=== PATIENT | male | born 1945 ===

== ENCOUNTER 2017-11-27 10:38 | Emergency (ER) | payer MEDICARE ==
[~2017-11-27] VITALS: Ht 180.3 cm; Wt 81.7 kg
[~2017-11-27 10:38] MED LIST: ASPI81CH PO; Amantadine100 M1 PO; CHOL10002; CYAN1000I IM; Carbidopa-Levo1 EAC2 PO; DOCU100 PO; ERGO400 PO; Fludrocortison0.1 MG PO; LISI5 PO; Laxative5 M1 PO; MULTI-VITAMIN1 EACH PO
[2017-11-27 11:16] LABS: BASOPHILS ABSOLUTE AUTO 0.05 K/mm3 (0.00-0.23); BASOPHILS PERCENT AUTO 1 % (0-2); EOSINOPHILS ABSOLUTE AUTO 0.06 K/mm3 (0.00-0.68); EOSINOPHILS PERCENT AUTO 1 % (0-6); Hematocrit 41.7 % (37.0-53.0); IMMATURE GRAN ABSOLUTE AUTO 0.01 K/mm3 (0.00-0.10); IMMATURE GRAN PERCENT AUTO 0 % (0-1); LYMPHOCYTES ABSOLUTE AUTO 1.46 K/mm3 (0.84-5.20); LYMPHOCYTES PERCENT AUTO 24 % (21-46); MONOCYTES ABSOLUTE AUTO 0.61 K/mm3 (0.16-1.47); MONOCYTES PERCENT AUTO 10 % (4-13); Mean Corpuscular HGB Conc 33.6 g/dL (31.5-36.5); Mean Corpuscular Volume 95 fL (80-100); Mean Platelet Volume 11.2 fL (9.1-12.4); NEUTROPHILS ABSOLUTE AUTO 3.81 K/mm3 (1.96-9.15); NEUTROPHILS PERCENT AUTO 64 % (41-73); Platelet Count 234 K/mm3 (150-400); RDW Coefficient Variation 12.6 % (11.7-14.2); RDW Standard Deviation 44.7 fL (35.1-46.3); Red Blood Cell Count 4.38 M/mm3 (4.30-5.90)
[2017-11-27 11:29] LABS: Alanine Aminotransfer (ALT/SGP 22 U/L (12-78); Albumin, Blood 3.8 g/dL (3.4-5.0); Albumin/Globulin Ratio 1.1 (0.8-1.8); Alk Phos 76 U/L (50-136); Anion Gap 6 mmol/L (6-16); Aspartate Aminotrans (AST/SGOT 22 U/L (12-37); Bilirubin, Total 0.4 mg/dL (0.1-1.0); Blood Urea Nitrogen 15 mg/dL (8-24); Bun/Creatinine Ratio 13.9 (12.0-20.0); CO2, Blood 28 mmol/L (21-32); Calcium, Blood 8.4 mg/dL (8.5-10.1); Chloride, Blood 103 mmol/L (98-108); Creatinine, Blood 1.08 mg/dL (0.60-1.20); Globulin, Blood 3.5 g/dL (2.2-4.0); Glomerular Filtration Rate >60 (60-); Glucose, Blood 100 mg/dL (70-99); Potassium, Blood 4.2 mmol/L (3.5-5.5); Sodium, Blood 137 mmol/L (136-145); Total Protein, Blood 7.3 g/dL (6.4-8.2); Troponin I <0.015 ng/mL (0.000-0.040)
== END 2017-11-27 13:06 | disposition home or self-care (01) ==
LOC: ER 10:38
PROVIDERS: Emergency Medicine
DX: R55 Syncope and collapse (principal); I10 Essential (primary) hypertension; Z87.891 Personal history of nicotine dependence; Z79.899 Other long term (current) drug therapy; Z79.82 Long term (current) use of aspirin
CPT/HCPCS: 36415; 80053; 84484; 85025; 93005; 93010; 99283

== ENCOUNTER → 2017-12-28 | Outpatient (CLI) | payer MEDICARE ==
[2017-12-28 17:39] LABS: BASOPHILS ABSOLUTE AUTO 0.05 K/mm3 (0.00-0.23); BASOPHILS PERCENT AUTO 1 % (0-2); EOSINOPHILS ABSOLUTE AUTO 0.15 K/mm3 (0.00-0.68); EOSINOPHILS PERCENT AUTO 3 % (0-6); Hematocrit 41.1 % (37.0-53.0); Hemoglobin 13.8 g/dL (13.5-17.5); IMMATURE GRAN ABSOLUTE AUTO 0.01 K/mm3 (0.00-0.10); IMMATURE GRAN PERCENT AUTO 0 % (0-1); LYMPHOCYTES PERCENT AUTO 24 % (21-46); MONOCYTES ABSOLUTE AUTO 0.47 K/mm3 (0.16-1.47); MONOCYTES PERCENT AUTO 10 % (4-13); Mean Corpuscular HGB 31.9 pg (26.0-34.0); Mean Corpuscular HGB Conc 33.6 g/dL (31.5-36.5); Mean Corpuscular Volume 95 fL (80-100); Mean Platelet Volume 10.9 fL (9.1-12.4); NEUTROPHILS ABSOLUTE AUTO 3.05 K/mm3 (1.96-9.15); NEUTROPHILS PERCENT AUTO 62 % (41-73); Platelet Count 254 K/mm3 (150-400); RDW Coefficient Variation 12.6 % (11.7-14.2); RDW Standard Deviation 44.2 fL (35.1-46.3); Red Blood Cell Count 4.32 M/mm3 (4.30-5.90); White Blood Cell Count 4.93 K/mm3 (4.00-11.30)
== END | disposition home or self-care (01) ==
LOC: LAB EV 17:35
PROVIDERS: Physician Assistant
DX: K62.5 Hemorrhage of anus and rectum (principal)
CPT/HCPCS: 85025

== ENCOUNTER → 2018-11-27 | Outpatient (CLI) | payer MEDICARE ==
[2018-11-30 15:22] LABS: Stool Occult Bld Immuno 1 Negative (NEGATIVE)
== END ==
LOC: LAB SHORT 16:30 → LAB EV 16:30 → LAB 16:30
PROVIDERS: Student in an Organized Health Care Education/Training Program
DX: Z12.11 Encounter for screening for malignant neoplasm of colon (principal); I10 Essential (primary) hypertension; E78.2 Mixed hyperlipidemia; R73.01 Impaired fasting glucose
CPT/HCPCS: G0328

== ENCOUNTER 2019-05-29 07:45 | Inpatient (IN) | payer MEDICARE ==
[~2019-05-29] VITALS: Ht 182.9 cm; Wt 73.5 kg
[~2019-05-29 07:45] MED LIST changes: -ASPI81CH PO; -Amantadine100 M1 PO; -DOCU100 PO; -LISI5 PO; -MULTI-VITAMIN1 EACH PO
[2019-05-29 09:00] LABS: BASOPHILS ABSOLUTE AUTO 0.06 K/mm3 (0.00-0.23); BASOPHILS PERCENT AUTO 1 % (0-2); EOSINOPHILS ABSOLUTE AUTO 0.27 K/mm3 (0.00-0.68); EOSINOPHILS PERCENT AUTO 2 % (0-6); Hematocrit 37.7 % (37.0-53.0); Hemoglobin 12.1 g/dL (13.5-17.5); IMMATURE GRAN ABSOLUTE AUTO 0.04 K/mm3 (0.00-0.10); IMMATURE GRAN PERCENT AUTO 0 % (0-1); LYMPHOCYTES PERCENT AUTO 7 % (21-46); MONOCYTES ABSOLUTE AUTO 1.21 K/mm3 (0.16-1.47); MONOCYTES PERCENT AUTO 10 % (4-13); Mean Corpuscular HGB 31.1 pg (26.0-34.0); Mean Corpuscular HGB Conc 32.1 g/dL (31.5-36.5); Mean Corpuscular Volume 97 fL (80-100); Mean Platelet Volume 10.8 fL (9.1-12.4); NEUTROPHILS ABSOLUTE AUTO 9.81 K/mm3 (1.96-9.15); NEUTROPHILS PERCENT AUTO 80 % (41-73); Platelet Count 251 K/mm3 (150-400); RDW Coefficient Variation 13.8 % (11.7-14.2); Red Blood Cell Count 3.89 M/mm3 (4.30-5.90); White Blood Cell Count 12.29 K/mm3 (4.00-11.30)
[2019-05-29 09:24] LABS: Albumin, Blood 3.3 g/dL (3.4-5.0); Albumin/Globulin Ratio 0.8 (0.8-1.8); Bilirubin, Total 0.7 mg/dL (0.1-1.0); Bun/Creatinine Ratio 20.7 (12.0-20.0); Creatinine, Blood 1.35 mg/dL (0.60-1.20); Globulin, Blood 3.9 g/dL (2.2-4.0); Potassium, Blood 4.2 mmol/L (3.5-5.5); Total Protein, Blood 7.2 g/dL (6.4-8.2)
[2019-05-29] MEDS ORDERED: Amantadine100 M1 PO (12:38)
[2019-05-29] MEDS ORDERED: ZESTRIL40 MG PO (12:38)
[2019-05-29] MEDS ORDERED: Amlodipine Besyl5 MG PO (12:38)
--- NOTE | 2019-05-29 13:11 | NUR ---
PT ARRIVED TO THE ROOM AT APPROXIMATELY 1220. PT ALERT AND ORIENTED. PT REPOSITIONED AND ATTENDS CHANGED. PT FOUND TO HAVE STATE 3 PRESSURE SORE TO HIS BUTTOCKS AND 2 STAGE 2 PRESSURE SORES ALSO LOCATED IN THAT AREA. PICTURES TAKEN. PT ALSO HAD DRIED ON BOWEL MOVEMENT WHICH WAS REMOVED. PT REPORTS HIS FAMILY ASSISTS HIM AT HOME WHEN HE IS UNABLE TO CARE FOR HIMSELF. PT REPORTS HE SITS MOST OF THE TIME, ESPECIALLY SINCE IS , HE REPORTS THIS RECENT ON MAY 24, 2019. HE ALSO REPORTS FREQUENT FALLS WHEN AMBULATING. PAIN IS MANAGED WITH PT IS AT REST. VSS. WILL CONTINUE TO MONITOR.
[2019-05-29] MEDS ORDERED: COLACE CLEAR50 MG PO (14:53)
[2019-05-29] MEDS ORDERED: Aspirin EC81 MG PO (14:54)
[2019-05-29] MEDS ORDERED: MULTI-VITAMIN1 EACH PO (14:54)
[2019-05-29] MEDS ORDERED: OMEP20ER PO (14:56)
[2019-05-29] MEDS ORDERED: Senna8.6 MG PO (14:56)
[2019-05-29] MEDS ORDERED: Coq-10100 MG PO (14:57)
[2019-05-29] MEDS ORDERED: PROBIOTIC1 EAC4 PO (14:57)
--- NOTE | 2019-05-29 19:30 | NUR ---
SHIFT SUMMARY PAIN HAS BEEN MINIMAL SINCE PT ARRIVED TO THE UNIT. PT HAS BEEN ALERT AND ORIENTED. PLAN FOR SURGERY TOMORROW. VSS. WILL MONITOR UNTIL REPORT TO ONCOMING RN.
[2019-05-29 20:09] LABS: Source, Urine Catheter
[2019-05-29 20:13] LABS: Appearance, Urine Hazy (Clear); Bilirubin, Urine Neg (Neg); Blood, Urine 5+ (Neg); Color, Urine Yellow (P-Yellow); Glucose Qualitative, Urine Neg (Neg); Ketones, Urine Neg (Neg); Leukocyte Esterase, Urine 1+ (Neg); Nitrite, Urine Neg (Neg); Protein, Urine 2+ (Neg); Specific Gravity, Urine 1.015 (1.003-1.022); Urobilinogen, Urine 1+ (Normal); pH, Urine 6.5 (5.0-8.0)
[2019-05-29 20:20] LABS: Bacteria Few /hpf; Red Blood Cells, Urine TNTC /hpf (0-2); Squamous Epithelial Cells Not Seen /hpf (Few); White Blood Cells, Urine 0-2 /hpf (0-5)
[2019-05-30 04:24] LABS: BASOPHILS ABSOLUTE AUTO 0.05 K/mm3 (0.00-0.23); BASOPHILS PERCENT AUTO 1 % (0-2); EOSINOPHILS ABSOLUTE AUTO 0.23 K/mm3 (0.00-0.68); EOSINOPHILS PERCENT AUTO 3 % (0-6); Hematocrit 35.1 % (37.0-53.0); Hemoglobin 11.3 g/dL (13.5-17.5); IMMATURE GRAN ABSOLUTE AUTO 0.01 K/mm3 (0.00-0.10); IMMATURE GRAN PERCENT AUTO 0 % (0-1); LYMPHOCYTES ABSOLUTE AUTO 1.23 K/mm3 (0.84-5.20); LYMPHOCYTES PERCENT AUTO 13 % (21-46); MONOCYTES ABSOLUTE AUTO 1.16 K/mm3 (0.16-1.47); MONOCYTES PERCENT AUTO 12 % (4-13); Mean Corpuscular HGB 31.8 pg (26.0-34.0); Mean Corpuscular HGB Conc 32.2 g/dL (31.5-36.5); Mean Corpuscular Volume 99 fL (80-100); Mean Platelet Volume 11.1 fL (9.1-12.4); NEUTROPHILS ABSOLUTE AUTO 6.64 K/mm3 (1.96-9.15); NEUTROPHILS PERCENT AUTO 71 % (41-73); Platelet Count 215 K/mm3 (150-400); RDW Coefficient Variation 13.2 % (11.7-14.2); Red Blood Cell Count 3.55 M/mm3 (4.30-5.90); White Blood Cell Count 9.32 K/mm3 (4.00-11.30)
[2019-05-30 04:48] LABS: Alanine Aminotransfer (ALT/SGP 18 U/L (12-78); Albumin, Blood 2.8 g/dL (3.4-5.0); Albumin/Globulin Ratio 0.8 (0.8-1.8); Alk Phos 85 U/L (50-136); Anion Gap 6 mmol/L (6-16); Aspartate Aminotrans (AST/SGOT 27 U/L (12-37); Bilirubin, Total 0.6 mg/dL (0.1-1.0); Blood Urea Nitrogen 22 mg/dL (8-24); Bun/Creatinine Ratio 17.9 (12.0-20.0); CO2, Blood 26 mmol/L (21-32); Calcium, Blood 8.2 mg/dL (8.5-10.1); Chloride, Blood 108 mmol/L (98-108); Creatinine, Blood 1.23 mg/dL (0.60-1.20); Globulin, Blood 3.6 g/dL (2.2-4.0); Glomerular Filtration Rate >60 (60-); Glucose, Blood 98 mg/dL (70-99); Potassium, Blood 3.8 mmol/L (3.5-5.5); Sodium, Blood 140 mmol/L (136-145); Total Protein, Blood 6.4 g/dL (6.4-8.2)
--- NOTE | 2019-05-30 06:59 | NUR ---
SHIFT SUMMARY HAS RESTED RELATIVELY WELL. HAS BEEN NPO SINCE MT FOR SX TODAY. DENIES PAIN, DISCOMFORT, OR FURTHER NEEDS AT THIS TIME. SAFETY MEASURES IN PLACE. WILL GIVE HAND OFF TO ONCOMING SHIFT USING SBAR.
--- NOTE | 2019-05-30 14:44 | NUR ---
INTO SDS VIA BED. HISTORY AND ALLERGIES REVIEWED. NPO STATUS CONFIRMED. LUNGS SLIGHTLY DIMINISHED IN BASES. MOIST, NONPRODUCTIVE COUGH NOTED. MAINTAINS SATS>90% ON RA.
--- NOTE | 2019-05-30 16:48 | NUR ---
05/30/19 1640 Renetta Blackmon PT ENTERED OR WITH SWEET CATHETER. [employer] SACRAL DRESSING CHANGED IN OR PRIOR TO PREPPING.
[2019-05-31 04:40] LABS: BASOPHILS ABSOLUTE AUTO 0.01 K/mm3 (0.00-0.23); BASOPHILS PERCENT AUTO 0 % (0-2); EOSINOPHILS PERCENT AUTO 0 % (0-6); Hematocrit 32.8 % (37.0-53.0); Hemoglobin 10.7 g/dL (13.5-17.5); IMMATURE GRAN ABSOLUTE AUTO 0.02 K/mm3 (0.00-0.10); IMMATURE GRAN PERCENT AUTO 0 % (0-1); LYMPHOCYTES ABSOLUTE AUTO 0.39 K/mm3 (0.84-5.20); LYMPHOCYTES PERCENT AUTO 4 % (21-46); MONOCYTES ABSOLUTE AUTO 0.43 K/mm3 (0.16-1.47); MONOCYTES PERCENT AUTO 4 % (4-13); Mean Corpuscular HGB 31.4 pg (26.0-34.0); Mean Corpuscular HGB Conc 32.6 g/dL (31.5-36.5); Mean Platelet Volume 11.6 fL (9.1-12.4); NEUTROPHILS ABSOLUTE AUTO 8.84 K/mm3 (1.96-9.15); NEUTROPHILS PERCENT AUTO 91 % (41-73); Platelet Count 217 K/mm3 (150-400); RDW Coefficient Variation 13.2 % (11.7-14.2); RDW Standard Deviation 46.6 fL (35.1-46.3); Red Blood Cell Count 3.41 M/mm3 (4.30-5.90); White Blood Cell Count 9.69 K/mm3 (4.00-11.30)
[2019-05-31 04:42] LABS: Mean Corpuscular Volume 96 fL (80-100)
[2019-05-31 05:02] LABS: Anion Gap 8 mmol/L (6-16); Blood Urea Nitrogen 26 mg/dL (8-24); Bun/Creatinine Ratio 22.2 (12.0-20.0); CO2, Blood 22 mmol/L (21-32); Calcium, Blood 8.1 mg/dL (8.5-10.1); Chloride, Blood 108 mmol/L (98-108); Creatinine, Blood 1.17 mg/dL (0.60-1.20); Glomerular Filtration Rate >60 (60-); Glucose, Blood 132 mg/dL (70-99); Magnesium, Blood 2.1 mg/dL (1.6-2.4); Potassium, Blood 4.5 mmol/L (3.5-5.5); Sodium, Blood 138 mmol/L (136-145)
--- NOTE | 2019-05-31 07:49 | NUR ---
SHIFT SUMMARY: PT POD #1 FOR RIGHT MARLYN HIP. PT DROWSY SINCE SURGERY. AROUSABLE WITH VERBAL STIMULI. CONFUSED TO SURROUNDINGS AND EVENT, HOWEVER CALM AND COOPERATIVE. DENYING PAIN T/O SHIFT. GIVEN SCHED TORADOL. REFUSED TYLENOL. AQUACEL CDI WITH POLAR PACK IN PLACE. SWEET PATENT AND DRAINING YELLOW URINE. FLUIDS INFUSING. MINIMAL PO INTAKE. MEPILEX TO COCCYX. 2 MAX ASSIST FOR REPOSITIONING.
--- NOTE | 2019-05-31 17:09 | NUR ---
SHIFT SUMMARY PT A&OX4. POD1 R MARLYN HIP, AQUACEL CDI, 50% WB, ELEVATED, TEDS/SCDS & POLAR LUIS ON. DENIES PAIN. DENIES N&V, RODOLFO PO. STAND PIVOT W/FWW & GB & 2 PP MAX ASSIST TO CHAIR. SWEET PATENT & DRAINING YELLOW URINE, STAT LOCK ON, OFF FLOOR. IVF LR @ 70 MLS/HR. WCTM & TX PER EMAR UNTIL REPORT GIVEN TO ONCOMING COLLIN BETTS.
--- NOTE | 2019-06-01 05:30 | NUR ---
SHIFT SUMMARY: PT POD #2 FOR RIGHT MARLYN HIP. A&O X4 T/O SHIFT. VSS. PT TRANSFERED FROM CHAIR TO BED WITH 3 PERSON MAX ASSIST. AQUACEL TO RIGHT HIP CDI WITH POLAR PACK IN PLACE. PT DENYING PAIN THROUGHOUT SHIFT. GIVEN SCHED TORADOL AND TYLENOL. SWEET PATENT AND DRAINING. PT EAGER TO GO HOME.
--- NOTE | 2019-06-01 16:32 | NUR ---
SHIFT SUMMARY PT A&OX4, VSS, POD2 R MARLYN HIP, AQUACEL CDI, POLAR LUIS ON, TEDS/SCDS AND ELEVATED. UP TO CHAIR T/O SHIFT. AMB W/2 MAX ASSIST - STAND PIVOT. WORKED WITH PHYSICAL THERAPY TODAY. PAIN MANAGED PER EMAR. RODOLFO PO, DENIES N&V. SWEET PATENT & DRAINING YELLOW URINE, STAT LOCK ON, OFF FLOOR. WCTM & TX PER EMAR UNTIL REPORT GIVEN TO ONCOMING COLLIN BETTS.
--- NOTE | 2019-06-02 06:02 | NUR ---
SHIFT SUMMARY: PT APPEARS TO BE RESTING COMFORTABLY T/O SHIFT. A&O X4. VSS. GIVEN SCHED TORADOL. PT REFUSING TYLENOL. PT DENYING PAIN. AQUACEL ON RIGHT HIP CDI. SALINE LOCKED. RODOLFO PO. SWEET PATENT AND DRAINING CLEAR YELLOW URINE. ADEQUATE OUTPUT. PLAN FOR SNF POST DISCHARGE.
--- NOTE | 2019-06-02 17:33 | NUR ---
REPORT CALLED TO [facility]. AWAITING TRANSPORT ARRIVAL. PT NOTIFIED THAT HE WILL BE TRANSFERRED TO SNF.
--- NOTE | 2019-06-02 17:40 | NUR ---
HOME CARE PT WAS ASKED ABOUT HOME CARE. HE REPORTS HE DOES MOST OF HIS CARE AT HOME AND FAMILY HELPS HIM WHEN HE ASKS FOR HELP. PT ASKED IF HE NOTIFIED HIS FAMILY THAT HE WAS HAVING DISCOMFORT TO HIS BUTTOCKS. HE DENIED TELLING HIS FAMILY THAT SOMETHING WAS WRONG AND ATTEMPTED TO REMEDY IT HIMSELF. HE ALSO REPORTED HE DOES NOT ALWAYS TELL HIS FAMILY WHEN HE NEEDS MORE HELP.
--- NOTE | 2019-06-02 18:35 | NUR ---
DISCHARGE PT ASSISTED INTO W/C FOR TRANSPORT TO [facility].
== END 2019-06-02 18:35 | DRG 469 ==
LOC: ER 07:45 → SURS 10:08
PROVIDERS: Emergency Medicine; Orthopaedic Surgery; ADMIT Internal Medicine
PROC: 0SRR0JZ Replacement of Right Hip Joint, Femoral Surface with Synthetic Substitute, Open Approach (ICD-10-PCS; principal; 2019-05-30 15:30)
DX: S72.001A Fracture of unspecified part of neck of right femur, initial encounter for closed fracture (principal); L89.153 Pressure ulcer of sacral region, stage 3; G90.3 Multi-system degeneration of the autonomic nervous system; L89.302 Pressure ulcer of unspecified buttock, stage 2; W18.30XA Fall on same level, unspecified, initial encounter; I10 Essential (primary) hypertension; E78.5 Hyperlipidemia, unspecified; Z87.891 Personal history of nicotine dependence; D64.9 Anemia, unspecified
CPT/HCPCS: 36415; 71045; 72170; 73502; 80048; 80053; 81001; 83735; 85025; 86850; 86900; 86901; 87086; 88305; 88311; 93005; 93010; 96360; 97110; 97161; 97166; 97530; 99285-25; C1776; J0171; J0690; J0735; J1100; J1650; J1885; J2270; J2370; J2405; J2704; J2765; J2795; J3010; J7042; J7120

== ENCOUNTER 2019-06-13 13:47 | Emergency (ER) | payer MEDICARE ==
[~2019-06-13] VITALS: Ht 180.3 cm; Wt 73.9 kg
[~2019-06-13 13:47] MED LIST changes: +Amantadine100 M1 PO; +Amlodipine Besyl5 MG PO; +Aspirin EC81 MG PO; +COLACE CLEAR50 MG PO; +Coq-10100 MG PO; +MULTI-VITAMIN1 EACH PO; +OMEP20ER PO; +PROBIOTIC1 EAC4 PO; +Senna8.6 MG PO; +ZESTRIL40 MG PO
[2019-06-14] MEDS ORDERED: OXYC10TA19 PO (10:09)
[2019-06-14] MEDS ORDERED: XARELTO15 MG PO (14:19)
== END 2019-06-13 18:12 | disposition home or self-care (01) ==
LOC: ER 13:47
DX: T84.020A Dislocation of internal right hip prosthesis, initial encounter (principal); X50.9XXA Other and unspecified overexertion or strenuous movements or postures, initial encounter; R55 Syncope and collapse; Z87.891 Personal history of nicotine dependence; Z79.899 Other long term (current) drug therapy; Z79.82 Long term (current) use of aspirin
CPT/HCPCS: 27265; 73502; 96374-59; 96375-59; 99283-25; J2405; J2704; J3010; J7030

== ENCOUNTER 2019-06-13 20:02 | Inpatient (IN) | payer MEDICARE ==
[~2019-06-13] VITALS: Ht 180.3 cm; Wt 77.5 kg
[2019-06-14 00:45] LABS: BASOPHILS ABSOLUTE AUTO 0.03 K/mm3 (0.00-0.23); BASOPHILS PERCENT AUTO 0 % (0-2); EOSINOPHILS ABSOLUTE AUTO 0.01 K/mm3 (0.00-0.68); EOSINOPHILS PERCENT AUTO 0 % (0-6); Hematocrit 30.3 % (37.0-53.0); Hemoglobin 9.7 g/dL (13.5-17.5); IMMATURE GRAN ABSOLUTE AUTO 0.07 K/mm3 (0.00-0.10); IMMATURE GRAN PERCENT AUTO 1 % (0-1); LYMPHOCYTES ABSOLUTE AUTO 1.05 K/mm3 (0.84-5.20); LYMPHOCYTES PERCENT AUTO 7 % (21-46); MONOCYTES ABSOLUTE AUTO 0.97 K/mm3 (0.16-1.47); MONOCYTES PERCENT AUTO 6 % (4-13); Mean Corpuscular HGB 31.8 pg (26.0-34.0); NEUTROPHILS ABSOLUTE AUTO 13.36 K/mm3 (1.96-9.15); NEUTROPHILS PERCENT AUTO 86 % (41-73); Platelet Count 447 K/mm3 (150-400); RDW Coefficient Variation 13.2 % (11.7-14.2); Red Blood Cell Count 3.05 M/mm3 (4.30-5.90); White Blood Cell Count 15.49 K/mm3 (4.00-11.30)
[2019-06-14 00:46] LABS: Mean Corpuscular Volume 99 fL (80-100)
[2019-06-14 07:06] LABS: BASOPHILS ABSOLUTE AUTO 0.06 K/mm3 (0.00-0.23); BASOPHILS PERCENT AUTO 0 % (0-2); EOSINOPHILS ABSOLUTE AUTO 0.14 K/mm3 (0.00-0.68); EOSINOPHILS PERCENT AUTO 1 % (0-6); Hematocrit 28.3 % (37.0-53.0); Hemoglobin 8.9 g/dL (13.5-17.5); IMMATURE GRAN ABSOLUTE AUTO 0.05 K/mm3 (0.00-0.10); IMMATURE GRAN PERCENT AUTO 0 % (0-1); LYMPHOCYTES ABSOLUTE AUTO 1.42 K/mm3 (0.84-5.20); LYMPHOCYTES PERCENT AUTO 10 % (21-46); MONOCYTES ABSOLUTE AUTO 1.21 K/mm3 (0.16-1.47); MONOCYTES PERCENT AUTO 8 % (4-13); Mean Corpuscular HGB 30.9 pg (26.0-34.0); Mean Corpuscular HGB Conc 31.4 g/dL (31.5-36.5); Mean Corpuscular Volume 98 fL (80-100); Mean Platelet Volume 11.3 fL (9.1-12.4); NEUTROPHILS ABSOLUTE AUTO 11.59 K/mm3 (1.96-9.15); NEUTROPHILS PERCENT AUTO 80 % (41-73); Platelet Count 420 K/mm3 (150-400); RDW Coefficient Variation 13.3 % (11.7-14.2); RDW Standard Deviation 48.4 fL (35.1-46.3); Red Blood Cell Count 2.88 M/mm3 (4.30-5.90); White Blood Cell Count 14.47 K/mm3 (4.00-11.30)
[2019-06-14 07:13] LABS: International Normalized Ratio 1.14; Prothrombin Time Results 11.9 Sec (9.7-11.5)
[2019-06-14 07:14] LABS: Bun/Creatinine Ratio 16.9 (12.0-20.0); Calcium, Blood 8.1 mg/dL (8.5-10.1); Creatinine, Blood 1.42 mg/dL (0.60-1.20); Potassium, Blood 3.8 mmol/L (3.5-5.5)
--- NOTE | 2019-06-14 07:32 | NUR ---
SHIFT SUMMARY PT ALERT T/O SHIFT. S/P R HIP REDUCTION; PT DECLINED PAIN MEDICATION; DRESSING TO R HIP CDI. PPPX4; BRISK CAP REFILL. MULTI-LAYER FOAM DRESSING TO COCCYX. VSS; NO ACUTE CHANGES. ATTENDS IN PLACE; ASSITED WITH URINAL PRN. GERI HOSE TO LOW EXT. PT WOKE DISORIENTED AND PULLED IV THIS AM. CALL LIGHT IN REACH; PT DEMONSRTATES USE. REPORT GIVEN TO DAY SHIFT RN.
--- NOTE | 2019-06-14 10:01 | NUR ---
DR BRUNSON HERE TO SEE PT, FAMILY PRESENT.
[2019-06-14] MEDS ORDERED: OXYC10TA19 PO (10:09)
--- NOTE | 2019-06-14 10:47 | NUR ---
SPOKE WITH DR KIMBALL REGARDING DIET WELL PT FAMILY REQUESTING TO SEE HIM. REPORTS PT MAY EAT REGULAR DIET.
[2019-06-14] MEDS ORDERED: XARELTO15 MG PO (14:19)
--- NOTE | 2019-06-14 17:44 | NUR ---
SHIFT SUMMARY PT WAS AWAKE EARLIER THIS MORNING. PT BEEN SLEEPING WITH RESP E/U THIS AFTERNOON EVENING. PT BEEN ASSISTED WITH ADL'S PRN. PT HAD GIANCARLO REMOVED, SURGICAL SITE CLEANED WITH PEROXIDE AND NEW DRESSING PLACED BY HELMINTHOLOGIST PER DR BRUNSON EARLIER TODAY. PT BED ALARM IN PLACE. FAMILY HERE EARLIER THIS AM.
--- NOTE | 2019-06-15 05:06 | NUR ---
PT VSS T/O NIGHT. PAIN MGD W/TYLENOL AND REPOSITIONING. POSTERIOR HIP PRECAUTIONS MAINTAINED, LEG IMMOBILIZER IN PLACE. FOAM DRESSING INTACT TO COCCYX. PT USING URINAL W/ASSITANCE. PO FLUIDS OFFERRED W/ROUNDINGS. PT REPOSITIOJNED FREQUENTLY T/O NIGHT, DOES SHIFT SELF SLIGHTLY IN BED. PT FORGETFUL AT TIMES, DOES USE CALL LIGHT AT TIMES. BED ALARM ON FOR SAFETY. WILL CONT TO MONITOR UNTIL REP GIVEN TO ONCOMING RN.
--- NOTE | 2019-06-15 10:23 | NUR ---
DR KIMBALL HERE RECENTLY. DISCUSSED PT'S STATUS. PT RECENTLY CLEANED UP. NEW MEPILEX PLACED. PT REPOSITIONED. BED ALARM IN PLACE.
--- NOTE | 2019-06-15 11:25 | NUR ---
FAMILY CAME AND VISITED PT. PT BED ALARM IN PLACE FAMILY HAS LEFT AGAIN.
--- NOTE | 2019-06-15 12:02 | NUR ---
TELE PLACED AND VERIFIED.
--- NOTE | 2019-06-15 18:06 | NUR ---
SHIFT SUMMARY PT EATING AND DRINKING WELL. PT BEEN REPOSITIONED MULT TIMES TODAY. PT BEEN ASSISTED WITH ADL'S PRN. TELE WAS PLACED PER DR KIMBALL. FAMILY IN TO SEE PT EARLIER TODAY. PT VOIDING AND HAD BM EARLIER TODAY. PT USING CALL LIGHT AT TIMES. BED ALARM IN PLACE.
[2019-06-16 04:40] LABS: BASOPHILS ABSOLUTE AUTO 0.07 K/mm3 (0.00-0.23); BASOPHILS PERCENT AUTO 1 % (0-2); EOSINOPHILS ABSOLUTE AUTO 0.32 K/mm3 (0.00-0.68); EOSINOPHILS PERCENT AUTO 3 % (0-6); Hematocrit 29.4 % (37.0-53.0); Hemoglobin 9.3 g/dL (13.5-17.5); IMMATURE GRAN ABSOLUTE AUTO 0.04 K/mm3 (0.00-0.10); IMMATURE GRAN PERCENT AUTO 0 % (0-1); LYMPHOCYTES ABSOLUTE AUTO 2.01 K/mm3 (0.84-5.20); LYMPHOCYTES PERCENT AUTO 17 % (21-46); MONOCYTES ABSOLUTE AUTO 0.96 K/mm3 (0.16-1.47); MONOCYTES PERCENT AUTO 8 % (4-13); Mean Corpuscular HGB 30.6 pg (26.0-34.0); Mean Corpuscular HGB Conc 31.6 g/dL (31.5-36.5); Mean Corpuscular Volume 97 fL (80-100); Mean Platelet Volume 11.2 fL (9.1-12.4); NEUTROPHILS ABSOLUTE AUTO 8.31 K/mm3 (1.96-9.15); NEUTROPHILS PERCENT AUTO 71 % (41-73); Platelet Count 385 K/mm3 (150-400); RDW Coefficient Variation 13.2 % (11.7-14.2); RDW Standard Deviation 46.9 fL (35.1-46.3); Red Blood Cell Count 3.04 M/mm3 (4.30-5.90); White Blood Cell Count 11.71 K/mm3 (4.00-11.30)
[2019-06-16 05:01] LABS: Bun/Creatinine Ratio 17.9 (12.0-20.0); Calcium, Blood 8.3 mg/dL (8.5-10.1); Creatinine, Blood 1.4 mg/dL (0.60-1.20)
--- NOTE | 2019-06-16 05:31 | NUR ---
SHIFT SUMMARY PT A&O TO SELF T/O SHIFT. MORE FORGETFUL DURING NIGHT. R HIP DRESSING CDI; PT DECLINED ICE TO R HIP; BRACE TO R KNEE; PPPX4; EXT PWD. PAIN MANAGED PER EMAR. GERI HERNANDEZ. DRESSING TO COCCYX CDI. RA; VSS. CALL LIGHT IN REACH; PT DEMONSTRATES USE. WCTM UNTIL REPORT TO DAY SHIFT RN.
--- NOTE | 2019-06-16 10:35 | NUR ---
PT GOT UP TO THE EDGE OF THE BED WITH THERAPY. PT WAS ABLE TO STAND. AFTER HE STOOD AND WAS SITTING AT THE EDGE OF THE BED HE SLUMPED OVER. PT REMAINED AWAKE BUT WAS NOT RESPONSIVE FOR LESS THAN A MINUTE. PT WAS ASSISTED BACK TO BED BY STAFF MEMBERS. VS CHECKED AND WERE STABLE. PT NSR ON TELE. PT REPORTS HE HAS THESE EPISODES AT HOME.
--- NOTE | 2019-06-16 11:16 | NUR ---
Patient is lying in bed and alert. Patient immediately tells me that physical therapy was just in to work with him and it did not go well. Patient said that the pain that accompanied movement was beyond his thershold of pain. Patient also told me about the very recent of his , patient's ideas about a higher being who is out there somewhere, and about his family and living arrangements. I listen empathically, provide spiritual guidance and grief support. Patient responds well and invites me to return and visit if he is in the hospital tomorrow. I continue to remain available to patient and familty.
--- NOTE | 2019-06-16 13:59 | NUR ---
THERAPY PT ASSISTED TO EDGE OF BED WITH PHYSICAL THERAPY. BP 116/68 WHILE SITTING AT THE EDGE OF THE BED; PT DENIED DIZZINESS FEELING. PT WAS ABLE TO COMPLETE 3 PARTIAL STANDS WITH 2 PERSON MODERATE ASSIST. PT DENIED DIZZINESS BUT REPORTED WEAKNESS; BP WAS RE-EVALUATED AND FOUND TO BE 87/38. PT WAS ASSISTED BACK TO BED AND BP RECOVERED TO 124/58. WILL CONTINUE TO MONITOR.
--- NOTE | 2019-06-16 18:14 | NUR ---
SHIFT SUMMARY PAIN HAS BEEN MANAGED WITH MINIMAL PAIN MEDICATION THIS SHIFT. PT ATTEMPTED TO PARTICIPATE WITH THERAPY X2, PT BECAME LIGHTHEADED WITH LOW BP. PT HAS A BOLUS OF IV FLUID, BP DROPPED WITH SECOND ROUND OF THERAPY. PT HAS BEEN ABLE TO DO SOME REPOSITIONING INDEPEDNENTLY OTHERWISE PT ASSISTED WITH REPOSITIONING. FAMILY VISITED TODAY. WILL MONITOR UNTIL REPORT TO ONCOMING RN.
[2019-06-17 04:42] LABS: BASOPHILS ABSOLUTE AUTO 0.05 K/mm3 (0.00-0.23); BASOPHILS PERCENT AUTO 0 % (0-2); EOSINOPHILS ABSOLUTE AUTO 0.23 K/mm3 (0.00-0.68); EOSINOPHILS PERCENT AUTO 2 % (0-6); Hematocrit 23.6 % (37.0-53.0); Hemoglobin 7.4 g/dL (13.5-17.5); IMMATURE GRAN ABSOLUTE AUTO 0.05 K/mm3 (0.00-0.10); IMMATURE GRAN PERCENT AUTO 0 % (0-1); LYMPHOCYTES ABSOLUTE AUTO 1.47 K/mm3 (0.84-5.20); LYMPHOCYTES PERCENT AUTO 13 % (21-46); MONOCYTES ABSOLUTE AUTO 0.96 K/mm3 (0.16-1.47); MONOCYTES PERCENT AUTO 9 % (4-13); Mean Corpuscular HGB 30.5 pg (26.0-34.0); Mean Corpuscular HGB Conc 31.4 g/dL (31.5-36.5); Mean Corpuscular Volume 97 fL (80-100); Mean Platelet Volume 11.2 fL (9.1-12.4); NEUTROPHILS ABSOLUTE AUTO 8.59 K/mm3 (1.96-9.15); NEUTROPHILS PERCENT AUTO 76 % (41-73); Platelet Count 351 K/mm3 (150-400); RDW Coefficient Variation 13.4 % (11.7-14.2); RDW Standard Deviation 48.2 fL (35.1-46.3); Red Blood Cell Count 2.43 M/mm3 (4.30-5.90); White Blood Cell Count 11.35 K/mm3 (4.00-11.30)
[2019-06-17 04:56] LABS: Bun/Creatinine Ratio 22.7 (12.0-20.0); Creatinine, Blood 1.28 mg/dL (0.60-1.20); Potassium, Blood 4.1 mmol/L (3.5-5.5)
--- NOTE | 2019-06-17 05:09 | NUR ---
SHIFT SUMMARY NO ACUTE CHANGES TONIGHT. PT CONT TO BE IN R KNEE IMMOBILIZER FOR POSTERIOR HIP PRECAUTIONS. TELE IN PLACE, NSR c PAC'S @ 65 BPM PER MICA LAYER. RESP E/U ON RA. NO PAIN MEDS GIVEN THIS SHIFT, PT REPORTS PAIN IS TOLERABLE. PT REPOSITIONED Q2H. VSS. WILL CONT TO MONITOR AND PROVIDE CARE UNTIL PRESUMED BY ONCOMING RN.
--- NOTE | 2019-06-17 06:38 | NUR ---
RN AT THE BEDSIDE.
--- NOTE | 2019-06-17 18:33 | NUR ---
SHIFT SUMMARY PT WAS DROWSY UNTIL FIRST UNIT OF BLOOD WAS INFUSED. THEN BECAME MORE ALERT AND INTERACTIVE BUT STILL QUIET. VERY RESISTANT TO WORK WITH THERAPY BUT DID DANGLE AT BEDSIDE. ORTHOSTATIC HYPOTENSION NOTED AND PT TOELRATED FOR 4 MINS BEFORE BECOMING DIZZY. PAIN WELL CONTROLLED. TOELRATING DIET WELL.
--- NOTE | 2019-06-17 22:47 | NUR ---
RN NOTIFIED OF SOME FECES GETTING UNDER THE COCCYX BANDAGE. AREA CLEANED UP AND RN PLACED A NEW BANDAGE. PATIENT HAS CALL LIGHT IN REACH.
[2019-06-18 04:28] LABS: BASOPHILS ABSOLUTE AUTO 0.07 K/mm3 (0.00-0.23); BASOPHILS PERCENT AUTO 1 % (0-2); EOSINOPHILS ABSOLUTE AUTO 0.28 K/mm3 (0.00-0.68); EOSINOPHILS PERCENT AUTO 3 % (0-6); Hematocrit 28.4 % (37.0-53.0); Hemoglobin 9.2 g/dL (13.5-17.5); IMMATURE GRAN ABSOLUTE AUTO 0.04 K/mm3 (0.00-0.10); IMMATURE GRAN PERCENT AUTO 0 % (0-1); LYMPHOCYTES ABSOLUTE AUTO 1.67 K/mm3 (0.84-5.20); LYMPHOCYTES PERCENT AUTO 15 % (21-46); MONOCYTES ABSOLUTE AUTO 1.12 K/mm3 (0.16-1.47); MONOCYTES PERCENT AUTO 10 % (4-13); Mean Corpuscular HGB 31.4 pg (26.0-34.0); Mean Corpuscular HGB Conc 32.4 g/dL (31.5-36.5); Mean Corpuscular Volume 97 fL (80-100); Mean Platelet Volume 11.4 fL (9.1-12.4); NEUTROPHILS ABSOLUTE AUTO 7.84 K/mm3 (1.96-9.15); NEUTROPHILS PERCENT AUTO 71 % (41-73); Platelet Count 328 K/mm3 (150-400); RDW Coefficient Variation 14.1 % (11.7-14.2); RDW Standard Deviation 50.2 fL (35.1-46.3); Red Blood Cell Count 2.93 M/mm3 (4.30-5.90); White Blood Cell Count 11.02 K/mm3 (4.00-11.30)
[2019-06-18 04:46] LABS: Anion Gap 5 mmol/L (6-16); Blood Urea Nitrogen 27 mg/dL (8-24); Bun/Creatinine Ratio 23.3 (12.0-20.0); CO2, Blood 28 mmol/L (21-32); Calcium, Blood 8.1 mg/dL (8.5-10.1); Chloride, Blood 107 mmol/L (98-108); Creatinine, Blood 1.16 mg/dL (0.60-1.20); Glomerular Filtration Rate >60 (60-); Glucose, Blood 93 mg/dL (70-99); Potassium, Blood 3.9 mmol/L (3.5-5.5); Sodium, Blood 140 mmol/L (136-145)
--- NOTE | 2019-06-18 06:31 | NUR ---
SHIFT SUMMARY LYING IN SEMI FOWLERS WITH EYES OPEN WHILE DISAGREEING WITH SENIOR NETWORK SYSTEMS ENGINEER AT BEDSIDE AFTER CALLING OUT FOR HIS SON. STATING THAT HE IS AT HOME AND READY TO GET OUT OF BED AND GET READY FOR BREAKFAST. HAS DECLINED OFFERS OF PAIN MED ALL SHIFT. RESTING INTERMITTENTLY THROUGHOUT SHIFT. DENIES FURTHER NEEDS AT THIS TIME. SAFETY MEASURES IN PLACE. WILL CONTINUE TO MONITOR.
--- NOTE | 2019-06-18 16:11 | NUR ---
SHIFT SUMMARY PT HAS DONE MUCH BETTER TODAY. WAS ABLE TO STAND WITH THERAPY. DENIES PAIN. TOLERATING DIET. PT VERY TIRED AND REPORTS FEELING "WORN OUT" THIS AFTERNOON SINCE LUNCH. PLAN FOR D/C HOME TOMORROW.
--- NOTE | 2019-06-19 06:36 | NUR ---
SHIFT SUMMARY LYING IN SEMI FOWLERS WITH EYES CLOSED. RESTING INTERMITTENTLY THROUGHOUT SHIFT. DENIES FURTHER NEEDS AT THIS TIME. SAFETY MEASURES IN PLACE. WILL CONTINUE TO MONITOR.
--- NOTE | 2019-06-19 17:25 | NUR ---
SHIFT SUMMARY PT A&OX4, VSS, LEFT VIA WC WITH TRANSPORT TO RETURN HOME; DC INSTRUCTIONS PERSONAL POSSESSIONS. IV DC'D. TELEPHONE CALL TO MARCELA DEVLIN - SHE SAID SHE WAS NOT GOING TO COME IN SINCE SHE KNOWS HOW TO USE A SIT TO STAND LIFT.
== END 2019-06-19 16:52 | disposition home health service (06) | DRG 561 ==
LOC: ER 20:02 → SURS 20:03
PROVIDERS: Family Medicine; Internal Medicine Endocrinology, Diabetes & Metabolism; Physician Assistant; ADMIT Hospitalist
PROC: 0SW9XJZ Revision of Synthetic Substitute in Right Hip Joint, External Approach (ICD-10-PCS; principal; 2019-06-18)
PROC: 30233N1 Transfusion of Nonautologous Red Blood Cells into Peripheral Vein, Percutaneous Approach (ICD-10-PCS; 2019-06-18)
DX: T84.020A Dislocation of internal right hip prosthesis, initial encounter (principal); I95.1 Orthostatic hypotension; G20 Parkinson's disease; G47.52 REM sleep behavior disorder; G31.83 Neurocognitive disorder with Lewy bodies; F02.80 Dementia in other diseases classified elsewhere, unspecified severity, without behavioral disturbance, psychotic disturbance, mood disturbance, and anxiety; D50.0 Iron deficiency anemia secondary to blood loss (chronic); F17.210 Nicotine dependence, cigarettes, uncomplicated; I12.9 Hypertensive chronic kidney disease with stage 1 through stage 4 chronic kidney disease, or unspecified chronic kidney disease; N18.3 Chronic kidney disease, stage 3 (moderate); L89.152 Pressure ulcer of sacral region, stage 2
CPT/HCPCS: 27265; 36415; 36430; 72170; 73502; 80048; 85025; 85610; 85651; 86141; 86850; 86900; 86901; 86923; 97162; 97166; 97530; 97535; 99152; 99285-25; A9270; G0378; J2704; J7030; J7040; P9016

== ENCOUNTER → 2019-06-26 | Outpatient (CLI) | payer MEDICARE ==
[~2019-06-26] MED LIST changes: +OXYC10TA19 PO; +XARELTO15 MG PO
[2019-06-26 18:49] LABS: BASOPHILS ABSOLUTE AUTO 0.09 K/mm3 (0.00-0.23); BASOPHILS PERCENT AUTO 1 % (0-2); EOSINOPHILS ABSOLUTE AUTO 0.22 K/mm3 (0.00-0.68); EOSINOPHILS PERCENT AUTO 3 % (0-6); Hemoglobin 11.2 g/dL (13.5-17.5); IMMATURE GRAN ABSOLUTE AUTO 0.03 K/mm3 (0.00-0.10); IMMATURE GRAN PERCENT AUTO 0 % (0-1); LYMPHOCYTES ABSOLUTE AUTO 1.13 K/mm3 (0.84-5.20); LYMPHOCYTES PERCENT AUTO 15 % (21-46); MONOCYTES ABSOLUTE AUTO 0.68 K/mm3 (0.16-1.47); MONOCYTES PERCENT AUTO 9 % (4-13); Mean Corpuscular HGB 30.1 pg (26.0-34.0); Mean Corpuscular HGB Conc 31.1 g/dL (31.5-36.5); Mean Corpuscular Volume 97 fL (80-100); Mean Platelet Volume 11.4 fL (9.1-12.4); NEUTROPHILS ABSOLUTE AUTO 5.57 K/mm3 (1.96-9.15); NEUTROPHILS PERCENT AUTO 72 % (41-73); Platelet Count 473 K/mm3 (150-400); RDW Coefficient Variation 13.3 % (11.7-14.2); RDW Standard Deviation 47.1 fL (35.1-46.3); Red Blood Cell Count 3.72 M/mm3 (4.30-5.90); White Blood Cell Count 7.72 K/mm3 (4.00-11.30)
[2019-06-26 19:13] LABS: Alanine Aminotransfer (ALT/SGP 31 U/L (12-78); Albumin, Blood 2.7 g/dL (3.4-5.0); Albumin/Globulin Ratio 0.6 (0.8-1.8); Alk Phos 153 U/L (50-136); Anion Gap 6 mmol/L (6-16); Aspartate Aminotrans (AST/SGOT 35 U/L (12-37); Bilirubin, Total 0.5 mg/dL (0.1-1.0); Blood Urea Nitrogen 23 mg/dL (8-24); Bun/Creatinine Ratio 19.7 (12.0-20.0); CO2, Blood 27 mmol/L (21-32); Calcium, Blood 8.8 mg/dL (8.5-10.1); Chloride, Blood 105 mmol/L (98-108); Creatinine, Blood 1.17 mg/dL (0.60-1.20); Globulin, Blood 4.4 g/dL (2.2-4.0); Glomerular Filtration Rate >60 (60-); Glucose, Blood 81 mg/dL (70-99); Potassium, Blood 4.2 mmol/L (3.5-5.5); Sodium, Blood 138 mmol/L (136-145); Total Protein, Blood 7.1 g/dL (6.4-8.2)
== END ==
LOC: LAB 18:28 → LAB SHORT 18:28
PROVIDERS: Student in an Organized Health Care Education/Training Program
DX: D50.0 Iron deficiency anemia secondary to blood loss (chronic) (principal)
CPT/HCPCS: 80053; 85025